=== PATIENT | male | born 1975 | race Caucasian/White ===

== ENCOUNTER 2017-12-30 14:20 | Emergency (ER) | payer BC ==
[2017-12-30 14:29] VITALS: BMI 25.7
[2017-12-30 14:30] VITALS: BP 132/73; PULSE 81; RESP 19; TEMP 98.5; O2SAT 100
[2017-12-30] MEDS ORDERED: Iohexol 240 (50 ml) PO ONE (14:35)
[2017-12-30] MEDS ORDERED: Sodium Chloride 0.9% 1,000 ML IV STA (14:35)
--- NOTE | 2017-12-30 14:38 | ED PDOC ---
HPI: Abdomen Time Seen by Provider: 12/30/17 14:25 Chief Complaint (Provider): Abd pain History Per: Patient History/Exam Limitations: no limitations Onset/Duration Of Symptoms: Days (yesterday) Additional Complaint(s): Pt. with abd pain diffuse. Nausea, vomit, nonbloody. No weakness, headaches, dizziness, chest pain, dyspnea, new food or drinks, or travel. Seen by prompt MD. Past Medical History Reviewed: Nursing Documentation, Vital Signs Vital Signs: Last Vital Signs Temp 98.5 F 12/30/17 14:26 Pulse 81 12/30/17 14:26 Resp 19 12/30/17 14:26 BP 132/73 12/30/17 14:26 Pulse Ox 100 12/30/17 14:26 - Medical History PMH: No Chronic Diseases - Surgical History Surgical History: No Surg Hx - Family History Family History: States: Unknown Family Hx - Living Arrangements Living Arrangements: With Family - Social History Current smoker - smoking cessation education provided: No Alcohol: None Drugs: Denies - Allergies Allergies/Adverse Reactions: Allergies Allergy/AdvReac Type Severity Reaction Status Date / Time No Known Allergies Allergy Verified 12/30/17 14:29 Review of Systems ROS Statement: Except As Marked, All Systems Reviewed And Found Negative Gastrointestinal: Positive for: Nausea, Vomiting, Abdominal Pain Physical Exam - Reviewed Nursing Documentation Reviewed: Yes Vital Signs Reviewed: Yes - Physical Exam Appears: Positive for: Non-toxic, No Acute Distress Head Exam: Positive for: ATRAUMATIC, NORMAL INSPECTION, NORMOCEPHALIC Skin: Positive for: Normal Color, Warm, DRY Eye Exam: Positive for: EOMI, Normal appearance, PERRL ENT: Positive for: Normal ENT Inspection Neck: Positive for: Normal, Painless ROM Cardiovascular/Chest: Positive for: Regular Rate, Rhythm Respiratory: Positive for: CNT, Normal Breath Sounds Gastrointestinal/Abdominal: Positive for: Bowel Sounds, Soft, Tenderness ( diffuse) Back: Positive for: Normal Inspection. Negative for: L CVA Tenderness, R CVA Tenderness Extremity: Positive for: Normal ROM. Negative for: Tenderness, Pedal Edema Neurologic/Psych: Positive for: Alert, Oriented - ECG O2 Sat by Pulse Oximetry: 100 Pulse Ox Interpretation: Normal - Progress ED Course And Treament: 1445: Stable. AAOx3. Dr. Khanna to take over care. FU on labs/imaging. Disposition - Clinical Impression Clinical Impression: Abdominal pain - Patient ED Disposition Is Patient to be Admitted: Transfer of Care - Disposition Disposition Time: 14:46 Condition: FAIR Patient Signed Over To: Keila Khanna
[2017-12-30] MEDS ORDERED: Iohexol 240 (50 ml) ONE (14:47)
[2017-12-30 15:08] LABS: BASO % 0.4 % (0.0-2.0); EOS % 0.4 % (0.0-4.0); HEMOGLOBIN 12.9 g/dL (12.0-18.0); LYMPH # 1.1 K/uL (1.0-4.3); LYMPH % 13.2 % (20.0-40.0); MEAN CELL VOLUME 59.1 fl (80.0-94.0); MEAN CORPUSCULAR HEMOGLOBIN 18.3 pg (27.0-31.0); MEAN CORPUSCULAR HGB CONC 30.9 g/dL (33.0-37.0); MEAN PLATELET VOLUME 8.9 fl (7.2-11.7); MONO # 0.5 K/uL (0.0-0.8); MONO % 6.9 % (0.0-10.0); NEUT # 6.3 K/uL (1.8-7.0); NEUT % 79.1 % (50.0-75.0); NRBC % 0.7 % (0.0-0.0); RBC 7.05 Mil/uL (4.40-5.90); RED CELL DISTRIBUTION WIDTH 16.2 % (11.5-14.5); WHITE BLOOD COUNT 7.9 K/uL (4.8-10.8)
--- NOTE | 2017-12-30 15:13 | ED PDOC ---
- Laboratory Results Result Diagrams: 12/30/17 15:02 12/30/17 15:02 - ECG O2 Sat by Pulse Oximetry: 100 (RA) Pulse Ox Interpretation: Normal Medical Decision Making Medical Decision Making: Time: 1500 Patient is endorsed to provider by Dr. Isaac Story. Pending CT and blood work results. 1755 PROCEDURE: CT scan abdomen pelvis dated 12/30/2017 HISTORY: Abdominal pain. COMPARISON: No prior TECHNIQUE: Contrast dose: 95 cc Omnipaque 300 Radiation dose: Total exam DLP = 861.55 mGy-cm. Contiguous helical/transaxial sections of the abdomen pelvis performed following oral and intravenous injection of contrast material. Additional 2 dimensional sagittal and coronal reformats provided. This CT exam was performed using one or more of the following dose reduction techniques: Automated exposure control, adjustment of the mA and/or kV according to patient size, and/or use of iterative reconstruction technique. FINDINGS: LOWER THORAX: Lung bases clear. No infiltrate effusion or basilar pneumothorax. There is tiny hiatal hernia. Heart size within range of normal. No significant pericardial effusion. Nine LIVER: Liver is upper limits of normal in size measuring approximately 18 cm in CC dimension. Minimal fatty hepatic infiltration felt be present. No obvious hepatic mass collection or calcification. GALLBLADDER AND BILE DUCTS: The gallbladder is physiologically distended. No evidence of intraluminal gallbladder calculi. PANCREAS: The pancreas appears unremarkable without masses collections or calcifications. All SPLEEN: Spleen exhibits normal size and attenuation pattern without mass collection or calcification. ADRENALS: Slightly nodular appearing adrenal glands. KIDNEYS AND URETERS: The kidneys demonstrate symmetric nephrograms. No evidence of nephrolithiasis or hydronephrosis. VASCULATURE: No evidence of abdominal aortic or iliac artery aneurysms. BOWEL: Evaluation of the bowel is somewhat limited due to incomplete opacification. The stomach is incompletely distended which a presumably in part accounts for thick-walled appearance. Possibility of gastritis or other intrinsic/invasive wall lesion not excluded. Visualized loops of small bowel exhibit there are several on loops of small bowel that exhibit mild wall thickening; findings could represent a nonspecific enteritis. Clinical correlation recommended. No evidence of acute mechanical bowel obstruction with oral contrast material is seen extending into the colon to the level of the rectum. There are few scattered colonic diverticula APPENDIX: Normal-appearing appendix of best seen on axial image number [id number]. PERITONEUM: Unremarkable. No free fluid. No free air. Small fat containing umbilical hernia. . There is also a small fat containing right inguinal hernia. LYMPH NODES: Unremarkable. No enlarged lymph nodes. BLADDER: Urinary bladder is incompletely distended which accounts for slight thick- walled appearance however muscular hypertrophy presumably contribute. REPRODUCTIVE: Prostate gland measures approximately 4.1 cm in transverse dimension. Few tiny prostatic calcifications are present. BONES: Minor multilevel degenerative spondylosis of the lower thoracic and lumbar spine. OTHER FINDINGS: None. IMPRESSION: There are several of loops of small bowel seen within the upper/mid abdomen that exhibit mild wall thickening. Findings suggest a nonspecific enteritis. No evidence of acute mechanical bowel obstruction. No evidence of acute appendicitis. Borderline hepatomegaly. Minor fatty hepatic infiltration. Small fat containing umbilical and right inguinal hernias. Small hiatal hernia. 180 - reeval Discussed finding and plan of care with patient. Scribe Attestation: Documented by Kj Thomas and Rachel Cazares, acting as a scribe for Dr. Keila Khanna. Provider Scribe Attestation: All medical record entries made by the Scribe were at my direction and personally dictated by me. I have reviewed the chart and agree that the record accurately reflects my personal performance of the history, physical exam, medical decision making, and the department course for this patient. I have also personally directed, reviewed, and agree with the discharge instructions and disposition. Disposition - Clinical Impression Clinical Impression: Abdominal pain - POA Present On Arrival: None - Disposition Referrals: [facility] [Outside] (FOLLOW UP WITH YOUR PRIMARY DOCTOR, PROMPT MD, OR [facility] IN 48 HOURS FOR REEVALUATION) Disposition: Routine/Home Disposition Time: 18:00 Condition: IMPROVED Prescriptions: Ondansetron ODT [Zofran ODT] 1 odt PO Q6 PRN #20 odt PRN Reason: Nausea/Vomiting Instructions: Acute Abdomen (Belly Pain), Adult (DC) Forms: [employer] (Turkmen)
[2017-12-30 15:23] LABS: INR 1.1 (0.9-1.2); PARTIAL THROMBOPLASTIN TIME 30.5 Seconds (25.6-37.1); PROTHROMBIN TIME 12.5 Seconds (9.8-13.1)
[2017-12-30 15:33] LABS: ALB/GLOB RATIO 1.2 (1.0-2.1); ALBUMIN 4.3 g/dL (3.5-5.0); ALT/SGPT 34 U/L (21-72); AST/SGOT 25 U/L (17-59); BLOOD UREA NITROGEN 16 mg/dl (9-20); CALCIUM 9.3 mg/dL (8.4-10.2); GFR AFRICAN-AMERICAN > 60; GFR NON-AFRICAN AMERICAN > 60; LIPASE 115 U/L (23-300)
[2017-12-30] MEDS ORDERED: Iohexol 300 100 ML IJ ONE (17:14)
--- NOTE | 2017-12-30 17:56 | CT ---
PROCEDURE: CT scan abdomen pelvis dated 12/30/2017 HISTORY: Abdominal pain. COMPARISON: No prior TECHNIQUE: Contrast dose: 95 cc Omnipaque 300 Radiation dose: Total exam DLP = 861.55 mGy-cm. Contiguous helical/transaxial sections of the abdomen pelvis performed following oral and intravenous injection of contrast material. Additional 2 dimensional sagittal and coronal reformats provided. This CT exam was performed using one or more of the following dose reduction techniques: Automated exposure control, adjustment of the mA and/or kV according to patient size, and/or use of iterative reconstruction technique. FINDINGS: LOWER THORAX: Lung bases clear. No infiltrate effusion or basilar pneumothorax. There is tiny hiatal hernia. Heart size within range of normal. No significant pericardial effusion. Nine LIVER: Liver is upper limits of normal in size measuring approximately 18 cm in CC dimension. Minimal fatty hepatic infiltration felt be present. No obvious hepatic mass collection or calcification. GALLBLADDER AND BILE DUCTS: The gallbladder is physiologically distended. No evidence of intraluminal gallbladder calculi. PANCREAS: The pancreas appears unremarkable without masses collections or calcifications. All SPLEEN: Spleen exhibits normal size and attenuation pattern without mass collection or calcification. ADRENALS: Slightly nodular appearing adrenal glands. KIDNEYS AND URETERS: The kidneys demonstrate symmetric nephrograms. No evidence of nephrolithiasis or hydronephrosis. VASCULATURE: No evidence of abdominal aortic or iliac artery aneurysms. BOWEL: Evaluation of the bowel is somewhat limited due to incomplete opacification. The stomach is incompletely distended which a presumably in part accounts for thick-walled appearance. Possibility of gastritis or other intrinsic/invasive wall lesion not excluded. Visualized loops of small bowel exhibit there are several on loops of small bowel that exhibit mild wall thickening; findings could represent a nonspecific enteritis. Clinical correlation recommended. No evidence of acute mechanical bowel obstruction with oral contrast material is seen extending into the colon to the level of the rectum. There are few scattered colonic diverticula APPENDIX: Normal-appearing appendix of best seen on axial image number [id number]. PERITONEUM: Unremarkable. No free fluid. No free air. Small fat containing umbilical hernia. . There is also a small fat containing right inguinal hernia. LYMPH NODES: Unremarkable. No enlarged lymph nodes. BLADDER: Urinary bladder is incompletely distended which accounts for slight thick-walled appearance however muscular hypertrophy presumably contribute. REPRODUCTIVE: Prostate gland measures approximately 4.1 cm in transverse dimension. Few tiny prostatic calcifications are present. BONES: Minor multilevel degenerative spondylosis of the lower thoracic and lumbar spine. OTHER FINDINGS: None. IMPRESSION: There are several of loops of small bowel seen within the upper/mid abdomen that exhibit mild wall thickening. Findings suggest a nonspecific enteritis. No evidence of acute mechanical bowel obstruction. No evidence of acute appendicitis. Borderline hepatomegaly. Minor fatty hepatic infiltration. Small fat containing umbilical and right inguinal hernias. Small hiatal hernia.
== END 2017-12-30 18:40 | disposition home or self-care (01) ==
LOC: H.ER 14:20
DX: R10.9 Unspecified abdominal pain (principal); K40.90 Unilateral inguinal hernia, without obstruction or gangrene, not specified as recurrent; K42.9 Umbilical hernia without obstruction or gangrene
CPT/HCPCS: 74177; 80053; 83690; 85025; 85610; 85730; 96361; 96374; 99283; J1885; J7040; Q9966; Q9967